=== PATIENT | female | born 1955 | race Caucasian/White ===

== ENCOUNTER 2018-07-06 11:26 | Emergency (ER) | payer BC, OTHER ==
[2018-07-06 11:33] VITALS: BP 127/59; PULSE 76; TEMP 97.8; BMI 29.2
[2018-07-06] MEDS ORDERED: diphenhydrAMINE HCL 25 MG CAPSULE (FP) PO ONE (12:02)
--- NOTE | 2018-07-06 12:02 | PDOC ---
History of Present Illness - General Chief Complaint: Allergic Reaction Stated Complaint: ALLERGIC REACTION Time Seen by Provider: 07/06/18 12:02 - History of Present Illness Initial Comments: 07/06/18 13:37 Chief complaint: ALLERGIC reaction History of present illness: Approximately one half hour after receiving an ALLERGY injection, the patient developed chest tightness, wheezing, nasal congestion, and throat irritation. She has been receiving ALLERGY injections for approximately 10 years without any prior reaction. Today she received her usual medication, but the dust mite injection was increased. She was given 10 mg Decadron and albuterol nebulizer in the ambulance with improvement in her symptoms. Review of systems: Denies chest pain, shortness of breath, abdominal pain, nausea, vomiting, diarrhea, visual or focal neurologic symptoms, unsteadiness of gait. Denies hives or other skin reaction other than swelling, redness, and induration of the site of the injection on the right upper arm. Remainder systems reviewed and found to be negative Past medical history: Mild asthma, controlled on when necessary albuterol inhaler, never needing emergency room treatment, steroids, overnight hospitalization, or intubation. ALLERGIC to bee stings, carries Benadryl for this reason, but did not take this medication today. Social/family history reviewed and noncontributory. No hereditary angioedema Physical exam: Alert and oriented well-developed well-nourished mild to moderate distress from chest tightness and nasal congestion Afebrile, vital signs normal. Oxygen saturation maintained HEENT: There is marked nasal congestion, mild swelling of the nasal mucosa, but no swelling or edema of the posterior pharynx, no stridor, no drooling Neck supple without bruit mass or nodes Chest with mildly decreased breath sounds bilaterally but no wheezes rales or rhonchi. Respiratory rate is not increased and oxygen saturation is normal CV S1 and S2 normal without murmur rub or gallop pulses full and symmetric no JVD or edema no bruits Abdomen soft nontender without mass or organomegaly. Bowel sounds normal Nondistended Neurological C2 to 12 intact. Strength full and symmetric. No focal sensory or motor deficits. Gait stable and unimpaired Skin clear, no rash except for localized reaction at the injection site, adequate turgor, and wet mucous membranes. Impression: ALLERGIC reaction to ALLERGY injection, improved Plan: Benadryl and Pepcid, received Decadron and albuterol during ambulance transport, repeat nebulizer and observation. Past History - Past Medical History Allergies/Adverse Reactions: Allergies Allergy/AdvReac Type Severity Reaction Status Date / Time Penicillins Allergy Verified 07/06/18 11:27 Home Medications: Ambulatory Orders NK [No Known Home Medication] 07/06/18 COPD: No Other medical history: ra - Suicide/Smoking/Psychosocial Hx Smoking Status: No Smoking History: Never smoked Number of Cigarettes Smoked Daily: 0 Hx Alcohol Use: No Drug/Substance Use Hx: No *Physical Exam - Vital Signs Last Vital Signs Temp Pulse Resp BP Pulse Ox 97.8 F 76 18 127/59 L 98 07/06/18 11:28 07/06/18 11:28 07/06/18 11:28 07/06/18 11:28 07/06/18 11:28 Moderate Sedation - Procedure Monitoring Vital Signs: Procedure Monitoring Vital Signs Temperature 97.8 F 07/06/18 11:28 Pulse Rate 76 07/06/18 11:28 Respiratory Rate 18 07/06/18 11:28 Blood Pressure 127/59 L 07/06/18 11:28 O2 Sat by Pulse Oximetry (%) 98 07/06/18 11:28 Medical Decision Making - Medical Decision Making 07/06/18 13:43 No suspicious exposures or unusual ingestions other than ALLERGY injection Patient much improved after treatment. Chest tightness has resolved and lungs are clear with full breath sounds bilaterally. Respiratory rate and oxygen saturation on normal No swelling or irritation of the throat persists. The nasal congestion and swelling have resolved Abdomen is soft and nontender Patient will be observed by her at home. Instructed to return to the ER if there were any further symptoms. Otherwise continue Benadryl and Pepcid for 1 -2 more days. Context shaker tender and discuss the reaction and further management. Fully ambulatory and in no distress, with no symptoms at discharge to follow-up as directed *DC/Admit/Observation/Transfer Diagnosis at time of Disposition: Allergic reaction Qualifiers: Encounter type: initial encounter Qualified Code(s): T78.40XA - Allergy, unspecified, initial encounter - Discharge Dispostion Disposition: HOME Condition at time of disposition: Improved Decision to Admit order: No - Referrals - Patient Instructions Printed Discharge Instructions: DI for General Allergic Reactions Additional Instructions: Close observation by family. If symptoms worsen, return to emergency room immediately or call 911 Otherwise continue Benadryl 2 capsules every 6 hours and Pepcid 20 mg every 12 hours for another day or 2 or until symptoms completely resolved. Discuss further modification of your ALLERGY injections with your shaker tender. Use ice or cold compresses to your right arm at the injection site. - Post Discharge Activity
[2018-07-06] MEDS ORDERED: diphenhydrAMINE HCL 50 MG CAPSULE ONE (12:17)
[2018-07-06] MEDS ORDERED: FAMOTIDINE 20 MG TABLET ONE (12:34)
[2018-07-06] MEDS ORDERED: FAMOTIDINE 20 MG TABLET PO ONE (12:45)
== END 2018-07-06 13:18 | disposition home or self-care (01) ==
LOC: FER 11:26
DX: T78.40XA Allergy, unspecified, initial encounter (principal)
CPT/HCPCS: 99281-25